=== PATIENT | female | born 1990 | race Caucasian/White ===

== ENCOUNTER 2022-02-08 16:19 | Outpatient (CLI) | payer OTHER, SELFPAY ==
--- NOTE | 2022-02-09 09:00 | PM.OBTRLD ---
Visit Information Visit Information Date of evaluation: 02/08/22 On-call OB Provider: Lien Bentley Reason for Evaluation: Yes rupture of membranes Vital Signs Vital Signs: Blood pressure 100/62, pulse 86, temperature 97.8? Review of Systems Review of Systems Narrative: Patient complaining of possible leakage of fluid. No contractions. Good movement. No vaginal bleeding. Evaluation Evaluation Baseline heart rate: 150 Variability: Moderate (11-25) monitor accelerations: Present Monitor Decelerations: Absent Non-invasive Membranes Rupture Test: negative Diagnosis, Plan/Disposition Final Diagnosis (1) 27 weeks gestation of : Status: Acute (2) labor: Status: Acute Plan/Disposition Plan: Patient with negative AmniSure in no evidence of contractions. Patient reassured. Follow-up with her primary OB provider. OB Disposition: home
== END 2022-02-08 17:24 | disposition home or self-care (01) ==
LOC: LABOR 16:32 → OB 02-10 07:24
PROVIDERS: Referring Provider Specialist; Visit Provider Specialist
DX: O41.8X30 Other specified disorders of amniotic fluid and membranes, third trimester, not applicable or unspecified (principal); O60.02 Preterm labor without delivery, second trimester; Z3A.27 27 weeks gestation of pregnancy
CPT/HCPCS: 59025; 84112; G0378; G0379